=== PATIENT | male | born 1980 | race Caucasian/White ===

== ENCOUNTER 2017-07-17 23:23 | Emergency (ER) | payer OTHER ==
[~2017-07-17] VITALS: Ht 167.6 cm; Wt 86.6 kg
[2017-07-18] MEDS ORDERED: TACROLIMUS0.5 GM TOP (00:13)
[2017-07-18] MEDS ORDERED: TRAMADOL 50 MG50 MG PO (00:13)
[2017-07-18] MEDS ORDERED: KEFLEX500 M1 PO (00:13)
[2017-07-18] MEDS ORDERED: IBUPROFEN 800800 M1 PO (00:13)
[2017-07-18 01:53] VITALS: BP 98/53
== END 2017-07-18 01:53 | disposition home or self-care (01) ==
LOC: M.ERS 23:23
DX: B35.3 Tinea pedis (principal); M79.672 Pain in left foot; M79.671 Pain in right foot; Z86.19 Personal history of other infectious and parasitic diseases